=== PATIENT | female | born 1950 | race Caucasian/White ===

== ENCOUNTER 2022-08-20 09:45 | Outpatient (RCR) | payer MEDICARE, OTHER, SELFPAY | END 2022-10-02 10:43 | disposition home or self-care (01) | PROVIDERS: Visit Provider Psychiatry & Neurology Neuromuscular Medicine | DX: G61.82 Multifocal motor neuropathy (principal); S76.012A Strain of muscle, fascia and tendon of left hip, initial encounter; R29.898 Other symptoms and signs involving the musculoskeletal system; Z51.89 Encounter for other specified aftercare | CPT/HCPCS: 97035; 97110; 97112; 97140; 97162 ==